=== PATIENT | female | born 1970 | race Caucasian/White ===

== ENCOUNTER 2016-12-08 15:28 | Emergency (ER) | payer OTHER ==
[~2016-12-08] VITALS: Ht 167.6 cm; Wt 96.8 kg
[~2016-12-08 15:28] MED LIST: ASCO10003 PO; ASPCH81X PO; ERGO1CAP35 PO; GLC/500 PO; HCTZ PO; MULTTAB58 PO; OMEP40CA PO
[2016-12-08 15:37] VITALS: BP 161/94; TEMP 36.6; Ht 167.6 cm; Wt 96.8 kg
[2016-12-08] MEDS ORDERED: HYDR25TA5 PO (15:59)
[2016-12-08] MEDS ORDERED: METF500T5 PO (15:59)
[2016-12-08] MEDS ORDERED: CHOL1000 PO (15:59)
[2016-12-08] MEDS ORDERED: OMEP40CA41 PO (15:59)
[2016-12-08] MEDS ORDERED: ASPI81TA28 PO (15:59)
--- NOTE | 2016-12-08 16:29 | EMERGENCY ROOM VISIT NOTE ---
History First contact with patient: 15:48 Chief Complaint: PUNCTURE WOUND Stated Complaint: PUNCTURED FINGER FROM FORCEPS WC (EMPLOYEE) Nursing Triage Summary: Triage note: pt reports "i was stabbed by forceps at work to my right index finger." pt reports happend at approx 0930. 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 The patient reports that she accidentally stuck her finger with a mosquito forceps at 9:30 AM. She reports that the wound did bleed extensively. She also cleanse the wound. She was cleaning up a vasectomy tray from yesterday. She and her water control supervisor are pretty certain that the tray was Dr. Black's tray. They do not know the name of one of four total vasectomy patients from yesterday. The patient's tetanus immunization is up-to-date. She is also up-to-date on all of her hospital required immunizations. And is [id number], and denies any significant pain. Review of Systems 10 system review was performed and was negative except for pertinent positives and negatives as indicated in history of present illness Past Medical/Surgical History Medical Problems: (1) GERD (gastroesophageal reflux disease) (2) Hyperlipidemia Nec/Nos (3) Hyperparathyroidism, Unspecified (4) Vitamin D Deficiency Nos Family History Unremarkable Social History Smoking Status: Never Smoker Alcohol Use: occasionally Marital Status: Housing Status: lives with family Occupation Status: employed Current/Historical Medications Scheduled Aspirin (Aspirin Ec), 81 MG PO DAILY Cholecalciferol (Vitamin D3), 1,000 INTER.UNIT PO DAILY Hydrochlorothiazide (Hydrochlorothiazide), 25 MG PO QAM Metformin Hcl Er (Glucophage Er), 500 MG PO DAILY Omeprazole (Prilosec), 40 MG PO QAM Allergies Coded Allergies: Adhesives (Verified Allergy, Unknown, hives, skin irritation, 03/24/16) adhesive tape causes hives, skin irritation Chlorhexidine (Verified Adverse Reaction, Intermediate, RASH, 03/24/16) ITCHING, REDNESS Physical Exam Vital Signs Date Time Temp Pulse Resp B/P Pulse Ox O2 Delivery O2 Flow Rate FiO2 12/08/16 15:37 36.6 78 18 161/94 99 Room Air Physical Exam CONSTITUTIONAL: Healthy and well nourished. Alert and oriented X 3 with positive affect. HEENT: Normocephalic, atraumatic. Pupils equal, round and reactive. NECK: Full active range of motion without discomfort. MUSCULOSKELETAL: Examination shows a puncture wound in the center of the right index finger digital pad. No active bleeding or ecchymosis. Capillary refill is less than 2 seconds. INTEGUMENTARY: No rash or other significant dermatologic conditions noted. NEUROLOGIC: No focal neurologic deficits noted. Medical Decision & Procedures ED Course Patient history and physical exam were performed. Nurse's notes were reviewed. Vital signs were reviewed and were normal. I did contact [facility] to advise them of this #injury in case the had not heard from the floor this morning. Baseline labs were drawn. I did explain to the patient that this is a low risk injury because of the amount of time between surgery and injury. Add to the fact that the equipment was also processed through an chrome cleaner and cleaning solution. The patient did sign a consent for baseline HIV testing. Based on our conversation, she elected to defer HIV postexposure prophylaxis. She will follow-up with [facility] for further management. The patient was happy with plan of care, and voiced understanding of all discharge instructions. Medical Decision Impression Primary Impression: Puncture wound of right index finger Additional Impression: Work related injury Departure Information Dispostion Home / Self-Care Forms HOME CARE DOCUMENTATION FORM, IMPORTANT VISIT INFORMATION Patient Instructions My [facility] Additional Instructions Keep wound clean and watch for any signs of developing infection. Follow-up with [facility] for further reevaluation and management. Problem Qualifiers
[2016-12-08 16:39] VITALS: PULSE 74; O2SAT 99
[2017-04-27] MEDS ORDERED: TRIATAB3 PO (14:49)
[2017-04-27] MEDS ORDERED: CHOL1TAB76 PO (14:49)
[2017-04-27] MEDS ORDERED: AZITTAB PO (14:50)
[2017-04-27] MEDS ORDERED: ASCO10003 PO (14:50)
[2017-04-27] MEDS ORDERED: MULT-506 PO (14:50)
== END 2016-12-08 16:40 | disposition home or self-care (01) ==
LOC: C.EDB 15:31 → C.EDD 16:40
DX: S61.230A Puncture wound without foreign body of right index finger without damage to nail, initial encounter (principal); W22.8XXA Striking against or struck by other objects, initial encounter; Y92.89 Other specified places as the place of occurrence of the external cause; Y99.0 Civilian activity done for income or pay; E78.5 Hyperlipidemia, unspecified; E21.3 Hyperparathyroidism, unspecified; K21.9 Gastro-esophageal reflux disease without esophagitis; Z79.82 Long term (current) use of aspirin; Z79.84 Long term (current) use of oral hypoglycemic drugs; Z79.899 Other long term (current) drug therapy; Z88.8 Allergy status to other drugs, medicaments and biological substances; Z91.09 Other allergy status, other than to drugs and biological substances

== ENCOUNTER → 2017-01-01 | Outpatient (CLI) | payer OTHER ==
[~2017-01-01] MED LIST changes: -ASPCH81X PO; +ASPI81TA28 PO; +AZITTAB PO; +CHOL1000 PO; +CHOL1TAB76 PO; -ERGO1CAP35 PO; +GADAVIST IV PRN; -GLC/500 PO; -HCTZ PO; +HYDR25TA5 PO; +METF500T5 PO; +MULT-506 PO; -MULTTAB58 PO; -OMEP40CA PO; +OMEP40CA41 PO; +TRIATAB3 PO
--- NOTE | 2017-01-01 07:29 | DIAGNOSTIC IMAGING REPORT ---
MRI ABDOMEN COMBO CLINICAL HISTORY: PANCREATIC NEOPLASM TECHNIQUE: Imaging was performed prior to and following IV contrast injection. (20 cc intravenous Magnevist) COMPARISON STUDY: 01/19/2016 FINDINGS: Imaging was acquired in the coronal and axial planes. No hepatic masses are visualized. No gallbladder abnormalities are visualized. No renal masses are visualized. No splenic masses are visualized. No adrenal masses are visualized. There is no evidence of abdominal aortic aneurysm. No adrenal masses are visualized. There is no evidence of ductal dilatation. There is a stable 7 mm intrapancreatic lipoma. There is a stable 3 mm pancreatic tail cystic lesion. IMPRESSION: No significant change from the preceding examination. Stable 7 mm intrapancreatic lipoma, and stable 3 mm pancreatic tail cystic lesion. Electronically signed by: Rony Santana M.D. 01/01/2017 7:28 AM Dictated Date/Time: 01/01/2017 7:22 AM
== END | disposition home or self-care (01) ==
LOC: C.MRI 06:04
PROVIDERS: ATTEND Internal Medicine Endocrinology, Diabetes & Metabolism
DX: E31.21 Multiple endocrine neoplasia [MEN] type I (principal); D35.2 Benign neoplasm of pituitary gland; D35.3 Benign neoplasm of craniopharyngeal duct; D49.0 Neoplasm of unspecified behavior of digestive system; R79.9 Abnormal finding of blood chemistry, unspecified

== ENCOUNTER → 2017-01-05 | Outpatient (CLI) | payer OTHER ==
--- NOTE | 2017-01-05 16:24 | DIAGNOSTIC IMAGING REPORT ---
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 COMPARISON STUDY: 01/17/2016 FINDINGS: Sagittal T1, and dynamic coronal T1-weighted images were acquired during intravenous administration of 9.5 cc of intravenous Gadavist. Post gadolinium thin section sagittal T1-weighted images were acquired. An axial FIESTA sequence was acquired. The optic chiasm appears normal. The infundibulum is within the midline. The pituitary gland is somewhat asymmetric in appearance. On dynamic imaging, there is a 4 mm focus of decreased enhancement within the right side of the gland. In addition the superior aspect of the right aspect of the pituitary appears somewhat bulbous in enhances in a heterogeneous fashion. This portion of the gland measures 6 mm. IMPRESSION: 1. 4 mm focus of decreased enhancement within the right side of the pituitary gland, consistent with a microadenoma 2. Stable somewhat bulbous right side of the pituitary gland which enhances somewhat inhomogeneously. This measures 6 mm. This remains similar in appearance to the prior study and may represent a second microadenoma. Electronically signed by: Rony Santana M.D. 01/05/2017 4:23 PM Dictated Date/Time: 01/05/2017 4:18 PM
== END | disposition home or self-care (01) ==
LOC: C.MRI 15:07
PROVIDERS: ATTEND Internal Medicine Endocrinology, Diabetes & Metabolism
DX: E31.21 Multiple endocrine neoplasia [MEN] type I (principal); D35.2 Benign neoplasm of pituitary gland; D35.3 Benign neoplasm of craniopharyngeal duct

== ENCOUNTER → 2017-01-16 | Outpatient (CLI) | payer OTHER ==
[~2017-01-16] MED LIST changes: -GADAVIST IV PRN
[2017-01-16 11:14] LABS: HEPATITIS B AB POS
== END | disposition home or self-care (01) ==
LOC: C.LAB1850 09:27
PROVIDERS: ATTEND Nurse Practitioner Family
DX: Z77.21 Contact with and (suspected) exposure to potentially hazardous body fluids (principal)

== ENCOUNTER → 2017-01-22 | Outpatient (CLI) | payer OTHER ==
[2017-01-22 08:46] LABS: BLOOD UREA NITROGEN 16 mg/dl (7-18); BUN/CREATININE RATIO 21.3 (10-20); CARBON DIOXIDE 30 mmol/L (21-32); CHLORIDE 103 mmol/L (98-107); CREATININE 0.76 mg/dl (0.60-1.20); GLUCOSE 132 mg/dl (70-99); POTASSIUM 3.3 mmol/L (3.5-5.1); SODIUM 140 mmol/L (136-145)
[2017-01-22 09:17] LABS: CALCIUM 9.8 mg/dl (8.5-10.1)
[2017-01-22 09:32] LABS: ESTIMATED AVERAGE GLUCOSE 134 mg/dl; HA1C FLAG Normal (Normal)
[2017-01-22 12:14] LABS: RATIO 3.8 mcg/mg (0-30.0)
[2017-01-25 10:27] LABS: 5-HIAA 4.8 mg/24 h (<=6.0)
[2017-01-28 02:24] LABS: CHROMOGRANIN A 51 ng/mL (< OR = 15); GASTRIN** TC 478X 96 pg/mL (<=100); NORMETANEPHRINE PLASMA 31 pg/mL (<=148); PANCREATIC POLYPEPTIDE 458 pg/mL (82-1016); SEROTONIN** TC 29851 107 ng/mL (56-244); TOTAL METANEPHRINE PLASMA 31 pg/mL (<=205)
== END | disposition home or self-care (01) ==
LOC: C.LAB 07:42
PROVIDERS: ATTEND Internal Medicine Endocrinology, Diabetes & Metabolism
DX: E31.21 Multiple endocrine neoplasia [MEN] type I (principal); E89.0 Postprocedural hypothyroidism; E21.0 Primary hyperparathyroidism; E55.9 Vitamin D deficiency, unspecified; E87.6 Hypokalemia; R73.01 Impaired fasting glucose; D49.0 Neoplasm of unspecified behavior of digestive system; D35.2 Benign neoplasm of pituitary gland

== ENCOUNTER → 2017-02-06 | Outpatient (CLI) | payer OTHER ==
--- NOTE | 2017-02-06 07:40 | DIAGNOSTIC IMAGING REPORT ---
RIGHT THIGH ULTRASONOGRAPHY CLINICAL HISTORY: Right thigh mass COMPARISON STUDY: No previous studies for comparison. FINDINGS: Within the posterior right thigh, at the site of palpable abnormality, there is a circumscribed 28 x 8 x 21 mm mass which is isoechoic to adjacent fat. The appearance favors a lipoma. Clinical follow-up is advocated. Fine-needle aspiration biopsy could be obtained in follow-up if definitive tissue diagnosis is desired. IMPRESSION: The palmar mass corresponds to a 28 x 8 x 21 mm circumscribed mass which is isoechoic to adjacent fat. The appearance favors a lipoma. Clinical follow-up is advocated. Electronically signed by: Rony Santana M.D. 02/06/2017 7:39 AM Dictated Date/Time: 02/06/2017 7:37 AM
== END | disposition home or self-care (01) ==
LOC: C.ULTR 07:10
PROVIDERS: ATTEND Family Medicine
DX: R22.41 Localized swelling, mass and lump, right lower limb (principal)

== ENCOUNTER → 2017-03-23 | Outpatient (CLI) | payer OTHER ==
--- NOTE | 2017-03-23 15:31 | MAMMOGRAPHY REPORT ---
BILATERAL DIGITAL SCREENING MAMMOGRAM TOMOSYNTHESIS WITH CAD: 03/23/2017 CLINICAL HISTORY: Routine screening. TECHNIQUE: Breast tomosynthesis in addition to standard 2D mammography was performed. Current study was also evaluated with a Computer Aided Detection (CAD) system. COMPARISON: Comparison is made to exams dated: 03/02/2016 mammogram, 01/06/2015 mammogram, 01/05/2014 vickie mogram, 12/17/2012 mammogram, 12/15/2011 mammogram, and 10/24/2010 mammogram - [facility]. BREAST COMPOSITION: There are scattered areas of fibroglandular density in both breasts. FINDINGS: A linear scar marker overlies the left anterior breast. There are a few benign-appearing c alcifications in the left breast. A nodular asymmetry in the upper outer anterior left breast appear s stable on all available prior mammograms dating back to at least 03/09/2008, therefore likely benig n. No new suspicious mass, architectural distortion or cluster of microcalcifications is seen. IMPRESSION: ACR BI-RADS CATEGORY 1: NEGATIVE There is no mammographic evidence of malignancy. A 1 year screening mammogram is recommended. The pa tient will receive written notification of the results. Approximately 10% of breast cancers are not detected with mammography. A negative mammographic report should not delay biopsy if a clinically suggestive mass is present. Hanny Tyler M.D. ay/:03/23/2017 15:15:07 Tube Winder Hand: Talisha PARK(R)(M), [facility] letter sent: Normal 1/2 BI-RADS Code: ACR BI-RADS Category 1: Negative
== END | disposition home or self-care (01) ==
LOC: C.MAMM 14:35
PROVIDERS: ATTEND Obstetrics & Gynecology
DX: Z12.31 Encounter for screening mammogram for malignant neoplasm of breast (principal)

== ENCOUNTER → 2017-04-18 | Outpatient (CLI) | payer OTHER | END | disposition home or self-care (01) | LOC: C.PAPS 17:00 | PROVIDERS: ATTEND Obstetrics & Gynecology | DX: Z12.4 Encounter for screening for malignant neoplasm of cervix (principal) ==

== ENCOUNTER → 2017-04-19 | Outpatient (CLI) | payer OTHER ==
[2017-04-19 18:00] LABS: BASO % 0.2 %; BASO ABS # 0.02 K/uL (0-0.2); COMPLETE YES; EOS % 1.4 %; HEMATOCRIT 39.2 % (37-47); IG% 0.3 %; LYMPH % 25.5 %; MEAN CELL VOLUME 90.5 fL (80-100); MEAN CORPUSCULAR HEMOGLOBIN 30.7 pg (25-34); MEAN CORPUSCULAR HGB CONC 33.9 g/dl (32-36); MEAN PLATELET VOLUME 9.7 fL (7.4-10.4); MONO % 4.7 %; NEUT % 67.9 %; PLATELET COUNT 309 K/uL (130-400); RED BLOOD COUNT 4.33 M/uL (4.2-5.4); WHITE BLOOD COUNT 9.41 K/uL (4.8-10.8)
--- NOTE | 2017-04-19 18:26 | DIAGNOSTIC IMAGING REPORT ---
TWO VIEW CHEST CLINICAL HISTORY: Preoperative examination. Cough. FINDINGS: PA and lateral chest radiographs are compared to study dated 05/13/2014. The cardiomediastinal silhouette is unremarkable. The lungs and pleural spaces are clear. There is no pneumothorax. The bony thorax appears intact. Fusion hardware is noted in the lower cervical spine. Degenerative change is seen in the thoracic spine. IMPRESSION: No active disease in the chest. Electronically signed by: Efren Sen M.D. 04/19/2017 6:25 PM Dictated Date/Time: 04/19/2017 6:24 PM
[2017-04-19 18:35] LABS: BLOOD UREA NITROGEN 10 mg/dl (7-18); BUN/CREATININE RATIO 13.8 (10-20); CARBON DIOXIDE 32 mmol/L (21-32); CHLORIDE 100 mmol/L (98-107); CREATININE 0.73 mg/dl (0.60-1.20); GLUCOSE 88 mg/dl (70-99); POTASSIUM 3.6 mmol/L (3.5-5.1); SODIUM 137 mmol/L (136-145)
== END | disposition home or self-care (01) ==
LOC: C.RAD 17:41
PROVIDERS: ATTEND Surgery
DX: M79.9 Soft tissue disorder, unspecified (principal); R05 Cough

== ENCOUNTER → 2017-06-15 | Outpatient (CLI) | payer OTHER ==
[~2017-06-15] MED LIST changes: -CHOL1000 PO; -HYDR25TA5 PO
== END ==
LOC: C.MNPGOH 14:57
PROVIDERS: ATTEND Nurse Practitioner Family
DX: Z77.21 Contact with and (suspected) exposure to potentially hazardous body fluids (principal); W46.1XXA Contact with contaminated hypodermic needle, initial encounter

== ENCOUNTER → 2017-07-20 | Day surgery (SDC) | payer OTHER ==
[2017-07-12 07:42] VITALS: Ht 167.6 cm; Wt 95.5 kg
[2017-07-19 09:35] LABS: BASO % 0.3 %; BASO ABS # 0.02 K/uL (0-0.2); COMPLETE YES; EOS % 0.7 %; HEMATOCRIT 36.7 % (37-47); IG% 0.3 %; LYMPH % 25.6 %; LYMPH ABS # 1.83 K/uL (1.2-3.4); MEAN CELL VOLUME 92.9 fL (80-100); MEAN CORPUSCULAR HEMOGLOBIN 30.1 pg (25-34); MEAN CORPUSCULAR HGB CONC 32.4 g/dl (32-36); MEAN PLATELET VOLUME 10.1 fL (7.4-10.4); MONO % 4.8 %; NEUT % 68.3 %; PLATELET COUNT 345 K/uL (130-400); RED BLOOD COUNT 3.95 M/uL (4.2-5.4); WHITE BLOOD COUNT 7.14 K/uL (4.8-10.8)
[2017-07-19 09:54] LABS: BUN/CREATININE RATIO 20.5 (10-20); CALCIUM 9.4 mg/dl (8.5-10.1); CREATININE 0.74 mg/dl (0.60-1.20); POTASSIUM 3.7 mmol/L (3.5-5.1)
[~2017-07-20] VITALS: Ht 167.6 cm; Wt 95.5 kg
[~2017-07-20] MED LIST changes: -ASPI81TA28 PO; +ATROPINE SULFATE 0.1 MG/ML 5ML SYR IV PRN; -AZITTAB PO; +BUPIVACAINE/EPINEPHRINE 0.5% MPF 1:200,000 30 ML VIAL ONE; +CEFAZOLIN 2000MG IV PUSH 10 ML IV SCH; +EpHEDrine SULFATE 50MG/5ML SYR ONE; +EpHEDrine SULFATE INJ 50 MG/ML AMP IV PRN; +FENTANYL CITRATE INJ 50 MCG/1 ML 2 ML VIAL IV PRN; +FENTANYL CITRATE INJ 50 MCG/1 ML 2 ML VIAL ONE; +HYDROCODONE/ACETAMOPHEN 5/325MG TAB PO PRN; +HYDROmorphone INJ 1 MG/ML SYR IV PRN; +IBUPROFEN 600 MG TAB PO PRN; +LACTATED RINGER'S 1000ML 1,000 ML IV SCH; +MIDAZOLAM HCL 1 MG/ML 2ML VIAL ONE; +ONDANSETRON INJ 2 MG/ML 2 ML VIAL IV PRN; +PROMETHAZINE HCL INJ 12.5 MG in SODIUM CHLORIDE 0.9% 50ML 50 ML IV PRN; +PROPOFOL IV EMULSION 10 MG/ML 20 ML VIAL IV ONE; +SODIUM CHLORIDE 0.9% 1000ML 1,000 ML IV SCH
--- NOTE | 2017-07-20 12:00 | History & Physical Bridge Note ---
H&P Re-Evaluation Bridge Note: I have examined the patient, reviewed the History & Physical and in the interval since the performance of the History & Physical I have noted the following changes of clinical significance: No changes noted
--- NOTE | 2017-07-20 13:12 | Discharge Instructions ---
Discharge Instructions Date of Service Jul 20, 2017. Visit Reason for Visit: Soft Tissue Mass Posterior Right Thigh And Left Fo Discharge Discharge Diagnosis / Problem: Soft Tissue Mass Posterior Right Thigh and Left Forearm Discharge Goals Goal(s): Decrease discomfort, Improve function Medications Stopped Medications Name(s): Metformin Activity Recommendations Activity Limitations: resume your previous activity Lifting Limitations: no more than 25 pounds, until after follow-up appointment Exercise/Sports Limitations: rest today, gradually increase as tolerated Shower/Bathe: tomorrow Driving or Machine Use: resume 1 day after discharge Anesthesia . Post Anesthesia Instructions: If you have had General Anesthesia or IV Sedation: * Do not drive today. * Resume driving when surgeon permits. * Do not make important decisions or sign legal documents today. * Call surgeon for: 1. Temperature elevations greater than 101 degrees F. 2. Uncontrollable pain. 3. Excessive bleeding. 4. Persistent nausea and vomiting. 5. Medication intolerance (nausea, vomiting or rash). * For nausea and vomiting use only clear liquids such as: tea, soda, bouillon until nausea subsides, then gradually increase diet as tolerated. * If you have any concerns or questions, call your surgeon's office. If physician is unavailable and it is an emergency, call 911 or go to the nearest emergency room. . Instructions / Follow-Up Instructions / Follow-Up You have dissolvable sutures in place and a gauze bandage. You may remove the bandage tomorrow. Please follow-up with Dr. Agee in 2 weeks. Please Call our office at to schedule an appointment if you have not done so already. Please contact our office with any further questions or concerns at the number above. [facility]. [address] [place] [address]. Diet Recommendations Recommended Home Diet: no limitations, resume previous diet Procedures Procedures Performed: Right Posterior Thigh Lipoma & Left Forearm Lipoma Excision Pending Studies Studies pending at discharge: yes List of pending studies: Pathology Medical Emergencies . Who to Call and When: Medical Emergencies: If at any time you feel your situation is an emergency, please call 911 immediately. . Non-Emergent Contact Non-Emergency issues call your: Primary Care Provider, Surgeon Call Non-Emergent contact if: you have a fever, temperature is above 101.5, your pain is not controlled, your pain is worsening, wound has increased drainage, wound has increased redness . . "Provider Documentation" section prepared by Rajendra Ferrari. . [place] Drug Monitoring Program Drug Monitoring Findings: N/A - No scheduled medications prescribed at this time.
--- NOTE | 2017-07-20 13:34 | [facility] Operative Report ---
Operative Report Operative Date Jul 20, 2017. Pre-Operative Diagnosis Right Posterior Thigh Lipoma, Left Forearm Lipoma Post-Operative Diagnosis Same Procedure(s) Performed Right Posterior Thigh Lipoma -3 cm& Left Forearm Lipoma Excision-[address] Agee Welfare Worker Surgeon(s) None Estimated Blood Loss 5 ml Findings benign appearing lipomas times 2. Specimens A.) Right Posterior Thigh Lipoma B.) Left Forearm Lipoma Anesthesia MAC/local Complication(s) None Disposition Recovery Room / PACU Description of Procedure After informed consent was obtained the patient was taken to the operating room and placed in a supine position. She was then placed in a left lateral decubitus position with gel rolls. IV sedation was administered by anesthesia and titrated to effect. The left forearm and right posterior thigh areas were sterilely prepped and draped in usual fashion. I began with the forearm lipoma. I injected some Marcaine with epinephrine around it to create a field block. I used a 15 blade scalpel to make a linear incision directly over the palpable mass. Electrocautery was used to carry this down through the soft tissue revealing a discrete lipoma. I was able used traction countertraction small amount of cautery to remove the lipoma in 1 piece. We sent to pathology. Any bleeding points were controlled using electrocautery. The wound was thoroughly irrigated and closed in 2 layers using 3-0 Vicryl for deep layers and 4-0 Monocryl for the skin. Benzoin Steri-Strips and a sterile dressing were applied. I Used the same technique for the posterior thigh lipoma. I create a field block with Marcaine and epinephrine and then made a vertical incision directly over the mass. Again it was a discrete mass that I was able to remove in one piece and sent it to pathology. Bleeding was controlled with electrocautery and the wound was thoroughly irrigated. It was closed in 2 layers using 3-0 Vicryl and 4-0 Monocryl for the skin. Benzoin Steri-Strips and a sterile dressing were applied as well. The patient was awaken and transferred recovery in stable condition I attest to the content of the Intraoperative Record and any orders documented therein. Any exceptions are noted below.
--- NOTE | 2017-07-20 13:44 | Anesthesia Progress Nt - [facility] ---
Anesthesia Post Op Note Date & Time Jul 20, 2017 at 13:44 Vital Signs Pain Intensity: 0 Vital Signs Past 12 Hours Date Time Temp Pulse Resp B/P (MAP) Pulse Ox O2 Delivery O2 Flow Rate FiO2 07/20/17 13:13 36.3 79 16 117/73 (88) 98 Room Air 07/20/17 10:13 36.6 67 16 138/84 (102) 97 Room Air Notes Mental Status: alert / awake / arousable, participated in evaluation Pt Amnestic to Procedure: Yes Nausea / Vomiting: adequately controlled Pain: adequately controlled Airway Patency, RR, SpO2: stable & adequate BP & HR: stable & adequate Hydration State: stable & adequate Anesthetic Complications: no major complications apparent
[2017-07-20 13:49] VITALS: BP 125/76; PULSE 72; TEMP 36.4; O2SAT 98
== END | disposition home or self-care (01) ==
LOC: X.SURG 09:12
PROVIDERS: ATTEND Surgery
DX: D17.23 Benign lipomatous neoplasm of skin and subcutaneous tissue of right leg (principal); D17.22 Benign lipomatous neoplasm of skin and subcutaneous tissue of left arm; E11.9 Type 2 diabetes mellitus without complications; Z98.818 Other dental procedure status; Z90.89 Acquired absence of other organs; Z79.82 Long term (current) use of aspirin; Z98.890 Other specified postprocedural states; Z79.899 Other long term (current) drug therapy; Z86.718 Personal history of other venous thrombosis and embolism; Z82.49 Family history of ischemic heart disease and other diseases of the circulatory system; Z83.3 Family history of diabetes mellitus; Z83.49 Family history of other endocrine, nutritional and metabolic diseases; E66.9 Obesity, unspecified; Z68.34 Body mass index [BMI] 34.0-34.9, adult

== ENCOUNTER → 2017-08-06 | Outpatient (CLI) | payer OTHER ==
[~2017-08-06] MED LIST changes: +ASPI81TA28 PO; -ATROPINE SULFATE 0.1 MG/ML 5ML SYR IV PRN; +AZITTAB PO; -BUPIVACAINE/EPINEPHRINE 0.5% MPF 1:200,000 30 ML VIAL ONE; -CEFAZOLIN 2000MG IV PUSH 10 ML IV SCH; -EpHEDrine SULFATE 50MG/5ML SYR ONE; -EpHEDrine SULFATE INJ 50 MG/ML AMP IV PRN; -FENTANYL CITRATE INJ 50 MCG/1 ML 2 ML VIAL IV PRN; -FENTANYL CITRATE INJ 50 MCG/1 ML 2 ML VIAL ONE; -HYDROCODONE/ACETAMOPHEN 5/325MG TAB PO PRN; -HYDROmorphone INJ 1 MG/ML SYR IV PRN; -IBUPROFEN 600 MG TAB PO PRN; -LACTATED RINGER'S 1000ML 1,000 ML IV SCH; -MIDAZOLAM HCL 1 MG/ML 2ML VIAL ONE; -ONDANSETRON INJ 2 MG/ML 2 ML VIAL IV PRN; -PROMETHAZINE HCL INJ 12.5 MG in SODIUM CHLORIDE 0.9% 50ML 50 ML IV PRN; -PROPOFOL IV EMULSION 10 MG/ML 20 ML VIAL IV ONE; -SODIUM CHLORIDE 0.9% 1000ML 1,000 ML IV SCH
[2017-08-06 10:09] LABS: BLOOD UREA NITROGEN 14 mg/dl (7-18); CALCIUM 10.1 mg/dl (8.5-10.1); CARBON DIOXIDE 32 mmol/L (21-32); CHLORIDE 102 mmol/L (98-107); CHOLESTEROL 161 mg/dl (0-200); CREATININE 0.79 mg/dl (0.60-1.20); GLUCOSE 115 mg/dl (70-99); POTASSIUM 3.4 mmol/L (3.5-5.1); SODIUM 139 mmol/L (136-145); TRIGLYCERIDES 126 mg/dl (0-150); VERY LOW DENSITY LIPOPROT CALC 25 mg/dl
[2017-08-06 10:18] LABS: CHOLESTEROL/HDL RATIO 3.1; HDL CHOLESTEROL 52 mg/dl; LDL CHOLESTEROL CALCULATED 84 mg/dl
[2017-08-06 10:21] LABS: ESTIMATED AVERAGE GLUCOSE 137 mg/dl; HA1C FLAG Normal (Normal)
[2017-08-07 14:15] LABS: MICROSOMAL AB <1 IU/ML (<9)
== END | disposition home or self-care (01) ==
LOC: C.LAB 08:19
PROVIDERS: ATTEND Internal Medicine Endocrinology, Diabetes & Metabolism
DX: D49.0 Neoplasm of unspecified behavior of digestive system (principal)

== ENCOUNTER → 2017-09-06 | Outpatient (CLI) | payer OTHER ==
[~2017-09-06] MED LIST changes: +ACET-1256 PO; -ASPI81TA28 PO; -AZITTAB PO; +GADAVIST IV PRN; +GLIP2.5T11 PO; +HYDR-3419 PO; +MTR600X PO; +OXYC-57 PO
--- NOTE | 2017-09-06 10:21 | DIAGNOSTIC IMAGING REPORT ---
MRI OF THE ABDOMEN COMBO CLINICAL HISTORY: Pancreatic neoplasm. COMPARISON STUDY: Abdominal MRI dated 01/01/2017 and 08/18/2013. TECHNIQUE: MRI of the abdomen is performed transverse T1 and T2-weighted sequences in the axial and coronal planes. Contrast enhanced sequences were acquired following the IV administration of 9 cc of Gadavist. Subtraction imaging was utilized. The examination is degraded by motion artifact. MRCP images are created and assessed. FINDINGS: Lower chest: No pleural effusion is identified. The heart is normal in size. Liver: The liver is normal in enlarged, measuring 18.6 cm in length. The liver demonstrates diffuse drop in signal intensity on the opposed phase imaging consistent with hepatic steatosis. Fatty sparing is seen adjacent to gallbladder fossa. No intrahepatic biliary ductal dilatation is seen. The hepatic veins and portal veins are patent. Gallbladder: The gallbladder is normal in appearance. No gallstones are identified. The common bile duct is normal in caliber and measures up to 5 mm. There are no filling defects to indicate choledocholithiasis. The pancreatic duct is normal in caliber. Spleen: Normal in size and signal intensity. Pancreas: An 8 mm lipoma in the pancreatic body is unchanged from multiple prior studies. A 3 mm cystic focus in the pancreatic tail is seen on coronal MRCP image #94. This remains typical appearance for a tiny sidebranch IV admin. The pancreas is otherwise normal as imaged. No enhancing mass lesion is seen. Adrenal glands: Unremarkable. Kidneys: The kidneys are normal in size and without hydronephrosis. The kidneys enhance and excrete symmetrically. Abdominal aorta: Normal in course and caliber. Bowel: Visualized portions of the small bowel and colon show no evidence of obstruction. Moderate colonic fecal retention is observed. Peritoneum: There is no abdominal ascites. Lymphadenopathy: None. Skeletal structures: Visualized skeletal structures times are normal marrow signal intensity. IMPRESSION: 1. An 8 mm lipoma in the pancreatic body and a 3 mm IPMN in the pancreatic tail are unchanged over multiple prior studies and of doubtful significance. 2. Hepatomegaly and hepatic steatosis. 3. Moderate colonic fecal retention. Electronically signed by: Efren Sen M.D. 09/06/2017 10:19 AM Dictated Date/Time: 09/06/2017 10:11 AM
== END | disposition home or self-care (01) ==
LOC: C.MRI 08:51
PROVIDERS: ATTEND Internal Medicine Endocrinology, Diabetes & Metabolism
DX: E31.21 Multiple endocrine neoplasia [MEN] type I (principal); D49.0 Neoplasm of unspecified behavior of digestive system; D17.79 Benign lipomatous neoplasm of other sites; R16.0 Hepatomegaly, not elsewhere classified; K76.0 Fatty (change of) liver, not elsewhere classified; K59.00 Constipation, unspecified

== ENCOUNTER 2017-10-19 07:25 | Day surgery (SDC) | payer BC, OTHER ==
[2017-10-01 15:47] VITALS: Ht 165.1 cm; Wt 95.5 kg
[~2017-10-19] VITALS: Ht 165.1 cm; Wt 95.5 kg
[~2017-10-19 07:25] MED LIST changes: -ACET-1256 PO; +ATROPINE SULFATE 0.1 MG/ML 5ML SYR IV PRN; +EpHEDrine SULFATE INJ 50 MG/ML AMP IV PRN; +FENTANYL CITRATE INJ 50 MCG/1 ML 2 ML VIAL IV PRN; -GADAVIST IV PRN; -GLIP2.5T11 PO; -HYDR-3419 PO; -MTR600X PO; +ONDANSETRON INJ 2 MG/ML 2 ML VIAL IV PRN; -OXYC-57 PO
[2017-10-19 07:46] VITALS: BP 136/92; PULSE 62; TEMP 36.6; O2SAT 97
[2017-10-19] MEDS ORDERED: FENTANYL CITRATE INJ 50 MCG/1 ML 2 ML VIAL ONE (07:47)
[2017-10-19] MEDS ORDERED: MIDAZOLAM HCL 1 MG/ML 2ML VIAL ONE (07:47)
[2017-10-19] MEDS ORDERED: SODIUM CHLORIDE 0.9% 500ML 500 ML IV ONE (08:22)
--- NOTE | 2017-10-19 08:22 | Endo History and Physical ---
History & Physical Date of Service: Oct 19, 2017. Chief Complaint: Referring Physician: History of Present Illness 47 yo presenting for evaluation and screening of MEN-1, elevated chromogranin A test Past Medical History Endocrine Disorder, Reflux, Thrombophlebitis Past Surgical History Hx Cardiac Surgery: No Hx Abdominal Surgery: No Hx Post-Op Nausea and Vomiting: Yes (PONV ON OCC) Hx Cancer Surgery: No Hx Thoracic Surgery: No Hx Orthopedic: No Hx Urinary Tract Surgery: No Social History Smoking Status: Never Smoker Hx Substance Use: No Hx Alcohol Use: Yes (OCC SOCIAL) Allergies Coded Allergies: Adhesives (Verified Allergy, Unknown, hives, skin irritation, 10/19/17) adhesive tape causes hives, skin irritation Chlorhexidine (Verified Adverse Reaction, Intermediate, RASH, 10/19/17) ITCHING, REDNESS Current Medications Reported Home Medications Medications Dose Route/Sig Max Daily Dose Days Date Category Vitamin C (Ascorbic Acid) 1,000 Mg Tab 1 Tab PO QPM 04/27/17 Reported Multivitamin (Multivitamins) Tab 1 Tab PO QPM 04/27/17 Reported Triamterene/Hctz 37.5-25MG (Triamterene/HCTZ) 1 Tab Tab 1 Tab PO QPM 04/27/17 Reported D 2000 (Cholecalciferol) 2,000 Unit Tab 1 Tab PO QPM 04/27/17 Reported Glucophage Er (Metformin HCl) 500 Mg Tab 1,000 Mg PO QPM 12/08/16 Reported Prilosec (Omeprazole) 40 Mg Cap 40 Mg PO QAM 12/08/16 Reported Vital Signs Weight (Kilograms): 95.45 Height (Feet): 5 Height (Inches): 5 Date Time Temp Pulse Resp B/P (MAP) Pulse Ox O2 Delivery O2 Flow Rate FiO2 10/19/17 07:46 36.6 62 16 136/92 (107) 97 Room Air Physical Exam General Appearance: WD/WN, no apparent distress Respiratory/Chest: Respiratory effort: no dyspnea Auscultation: breath sounds normal, CTA except as noted Cardiovascular: Apical Impulse: not displaced Heart Auscultation: RRR, normal S1, normal S2 Abdomen: Bowel Sounds: normal Inspection & Palpation: soft, non-distended Assessment and Plan Proceed with EUS for evaluation of pancreas as well as gastrinoma triangle
--- NOTE | 2017-10-19 09:59 | [facility] Post Operative Brief Note ---
Immediate Operative Summary Operative Date Oct 19, 2017. Pre-Operative Diagnosis MEN-1 Syndrome Post-Operative Diagnosis Multiple Cystic Pancreatic Lesions, Hypo Echoic Area Head FNA of Pancreatic Cyst in the Tail Procedure(s) Performed Upper Endoscopic Ultrasonography Surgeon Dr. Mejia Zeng Superintendent Operations Division Surgeon(s) None Estimated Blood Loss 0ml Findings Consistent with Post-Op Diagnosis several small cystic lesions, small hypoechoic lesion in the head, FNA x 2 Specimens all specimens handled by ENDO crew Anesthesia Type General
--- NOTE | 2017-10-19 10:19 | Discharge Instructions ---
Endoscopy Patient Instructions Date / Procedure(s) Performed Oct 19, 2017. Other (Endoscopic ultrasound) Allergy Information Coded Allergies: Adhesives (Verified Allergy, Unknown, hives, skin irritation, 10/19/17) adhesive tape causes hives, skin irritation Chlorhexidine (Verified Adverse Reaction, Intermediate, RASH, 10/19/17) ITCHING, REDNESS Discharge Date / Findings Oct 19, 2017. Cystic lesion in the tail Hypoechoic lesion in the head FNA x 2 Pathology results to follow Provider Instructions Activity Restrictions - No exercising or heavy lifting for 24 hours. - Do not drink alcohol the day of the procedure. - Do not drive a car or operate machinery until the day after the procedure. - Do not make any important decisions or sign important papers in 24 hours after the procedure. Following Day: - Return to full activity which may include returning to work/school. Diet Start your diet with liquids and light foods (jello, soup, juice, toast). Then eat your usual diet if not nauseated. Treatment For Common After Affects For mild abdominal pain, bloating, or excessive gas: - Rest - Eat lightly - Lie on right side Follow-Up Information Follow-up with as scheduled Anesthesia Information What You Should Know You have had a procedure that required some medicine to reduce anxiety and discomfort. This treatment is called moderate sedation. After receiving the treatment, you may be sleepy, but you will be able to breathe on your own. The effects of the treatment may last for several hours. Follow these instructions along with Activity/Diet recommendations noted above: * Do NOT do anything where dizziness or clumsiness would be dangerous. * Rest quietly at home today, then you can be up and about tomorrow. * Have a responsible person stay with you the rest of today. * You may have had an I.V. today. If so, you may take the dressing off later today. Recommendations Call your doctor if: * Trouble breathing * Continuous vomiting for more than 24 hours * Temperature above 101 degrees * Severe abdominal pain or bloating * Pain not relieved by pain medicine ordered * There is increased drainage or redness from any incision * A large amount of rectal bleeding greater than 2-3 tablespoons. (If you had a polyp/s removed or have hemorrhoids, a small amount of blood - from the rectum is to be expected.) * You have any unanswered questions or concerns. IN THE EVENT OF A SERIOUS EMERGENCY, GO TO THE NEAREST EMERGENCY ROOM Your discharge instructions were prepared by provider Mejia Zeng. Patient Instructions Signature Page Vandana Smiley Patient (or Guardian) Signature/Date: I have read and understand the instructions given to me by my caregivers. Caregiver/RN/Doctor Signature/Date: The above-named patient and/or guardian has received patient instructions on this date. + Original Patient Signature Page (only) stays with chart. Please make copy for patient.
[2017-10-19] MEDS ORDERED: HYDROmorphone INJ 2 MG/ML SYR/VIAL ONE (10:52)
[2017-10-19] MEDS ORDERED: LARYING-O-JET KIT (LTA) ONE (10:53)
[2017-10-19] MEDS ORDERED: ESMOLOL HCL 10 MG/ML 10 ML VIAL ONE (10:53)
[2017-10-19] MEDS ORDERED: LIDOCAINE HCL 2% 2 ML VIAL (20MG/ML) ONE (10:53)
[2017-10-19] MEDS ORDERED: ONDANSETRON INJ 2 MG/ML 2 ML VIAL ONE (10:53)
[2017-10-19] MEDS ORDERED: DEXAMETHASONE SOD INJ 4 MG/ML VIAL ONE (10:53)
[2017-10-19] MEDS ORDERED: PROPOFOL IV EMULSION 10 MG/ML 20 ML VIAL IV ONE (10:53)
[2017-10-19] MEDS ORDERED: NEOSTIGMINE METHYLSULFATE 5 MG/5 ML SYR ONE (10:53)
[2017-10-19] MEDS ORDERED: ROCURONIUM BROMIDE 10 MG/ML 5 ML VIAL IV ONE (10:53)
[2017-10-19] MEDS ORDERED: GLYCOPYRROLATE INJ 0.2 MG/ML VIAL ONE (10:53)
[2017-10-19 11:00] VITALS: BP 109/64; PULSE 46; TEMP 36.7; O2SAT 98
--- NOTE | 2017-10-19 11:01 | Anesthesiology Progress Note ---
Anesthesia Post Op Note Date & Time Oct 19, 2017 at 11:01 Vital Signs Pain Intensity: 0 Vital Signs Past 12 Hours Date Time Temp Pulse Resp B/P (MAP) Pulse Ox O2 Delivery O2 Flow Rate FiO2 10/19/17 10:40 36.4 45 16 125/78 100 Room Air 10/19/17 10:30 45 12 123/79 100 Nasal Cannula 3 10/19/17 10:20 61 13 128/52 100 Nasal Cannula 3 10/19/17 10:11 36.1 73 17 120/83 97 Nasal Cannula 3 10/19/17 07:46 36.6 62 16 136/92 (107) 97 Room Air Notes Mental Status: alert / awake / arousable, participated in evaluation Pt Amnestic to Procedure: Yes Nausea / Vomiting: adequately controlled Pain: adequately controlled Airway Patency, RR, SpO2: stable & adequate BP & HR: stable & adequate Hydration State: stable & adequate Anesthetic Complications: no major complications apparent
--- NOTE | 2017-10-19 11:08 | GI REPORT ---
Procedure Date: 10/19/2017 8:40 AM Procedure: Upper GI endoscopy Indications: Functional Dyspepsia, Known MEN-1 Syndrome Medicines: General Anesthesia Complications: No immediate complications. Estimated blood loss: None. Estimated Blood Loss: Estimated blood loss: none. Procedure: Pre-Anesthesia Assessment: - Pre-Anesthesia Assessment: - Prior to the procedure, a History and Physical was performed, and patient medications, allergies and sensitivities were reviewed. The patient's tolerance of previous anesthesia was reviewed. Please see [employer] for complete details. - The risks and benefits of the procedure and the sedation options and risks were discussed with the patient. All questions were answered and informed consent was obtained. - Patient identification and proposed procedure were verified prior to the procedure by the physician and the nurse. The procedure was verified in the pre-procedure area in the procedure room. After obtaining informed consent, the endoscope was passed carefully and meticuously under direct vision and only advanced when the lumen was clearly identified, C02 insuflation was utilized throughout the entirity of the procedure. Throughout the procedure, the patient's blood pressure, pulse, and oxygen saturations were monitored continuously. After obtaining informed consent, the endoscope was passed under direct vision. Throughout the procedure, the patient's blood pressure, pulse, and oxygen saturations were monitored continuously. The Scope was introduced through the mouth, and advanced to the third part of duodenum. The upper GI endoscopy was accomplished without difficulty. The patient tolerated the procedure well. Findings: The examined esophagus was normal. The entire examined stomach was normal. A few localized erosions without bleeding were found in the duodenal bulb. Biopsies were taken with a cold forceps for histology. A large diverticulum was found in the area of the papilla. Impression: - Normal esophagus. - Normal stomach. - Duodenal erosions without bleeding. Biopsied. - Duodenal diverticulum. Recommendation: - Await pathology results. - Discharge patient to home (with escort). - Perform an upper endoscopic ultrasound (UEUS) today. Mejia Zeng MD 10/19/2017 9:14:24 AM This report has been signed electronically. Note Initiated On: 10/19/2017 8:40 AM I attest to the content of the Intraoperative Record and orders documented therein, exceptions below
--- NOTE | 2017-10-19 11:27 | GI REPORT ---
Procedure Date: 10/19/2017 9:14 AM Procedure: Upper EUS Indications: Abnormal blood work, Known MEN-1 syndrome Medicines: Monitored Anesthesia Care Complications: No immediate complications. Estimated blood loss: None. Estimated Blood Loss: Estimated blood loss: none. Procedure: Pre-Anesthesia Assessment: - Pre-Anesthesia Assessment: - Prior to the procedure, a History and Physical was performed, and patient medications, allergies and sensitivities were reviewed. The patient's tolerance of previous anesthesia was reviewed. Please see [employer] for complete details. - The risks and benefits of the procedure and the sedation options and risks were discussed with the patient. All questions were answered and informed consent was obtained. - Patient identification and proposed procedure were verified prior to the procedure by the physician and the nurse. The procedure was verified in the pre-procedure area in the procedure room. After obtaining informed consent, the endoscope was passed carefully and meticuously under direct vision and only advanced when the lumen was clearly identified, C02 insuflation was utilized throughout the entirity of the procedure. Throughout the procedure, the patient's blood pressure, pulse, and oxygen saturations were monitored continuously. After obtaining informed consent, the endoscope was passed under direct vision. Throughout the procedure, the patient's blood pressure, pulse, and oxygen saturations were monitored continuously.The upper EUS was accomplished without difficulty. The patient tolerated the procedure well. The Endosonoscope was introduced through the mouth, and advanced to the second part of duodenum. Findings: Endosonographic Finding : Anechoic lesions suggestive of a few cysts were identified in the pancreatic head, body, and tail. The first cyst measured 3 mm by 2 mm (head). The second cyst measured 7 mm (body) in maximal cross-sectional diameter. The third cyst measured 9 mm by 6 mm (tail near left kidney). There was no associated mass. Diagnostic needle aspiration for fluid was performed. Color Doppler imaging was utilized prior to needle puncture to confirm a lack of significant vascular structures within the needle path. One pass was made with the 22 gauge needle using a transgastric approach of the pancreatic tail lesion. A stylet was used. The amount of fluid collected was 2 mL. The fluid was clear. Sample(s) were sent for cytology and CEA. An oval lesin was identified in the pancreatic head. The mass was hypoechoic. The mass measured 6 mm by 4 mm in maximal cross-sectional diameter. The endosonographic borders were well-defined. An intact interface was seen between the mass and the adjacent structures suggesting a lack of invasion. The remainder of the pancreas was examined. The endosonographic appearance of parenchyma and the upstream pancreatic duct indicated a normal appearing duct. There was no sign of significant endosonographic abnormality in the left lobe of the liver. There was no sign of significant endosonographic abnormality involving the celiac trunk. No lymphadenopathy seen. -Comments: Ms. Smiley is a complicated patient with document MEN-1, increasing Chromogranin A level, small cytic lesions, no alarm features, this hypoechoic area in the head was very ill defined and quite small, but FNA performed due to clinical scenerio. If non-revealing suggest at miniumum close follow up repeat EUS vs MRI, consider evaluation at [facility]. Also Suggest Chest imaging. Following Chromogranin A level. Impression: - A few cystic lesions were seen in the pancreatic head,body, tail. Fine needle aspiration for fluid performed. - A mass was identified in the pancreatic head. This was staged T1 N0 Mx by endosonographic criteria. The staging applies if malignancy is confirmed. - There was no evidence of significant pathology in the left lobe of the liver. - The celiac trunk was endosonographically normal. Recommendation: - Discharge patient to home (with escort). - Await cytology results and await tumor markers. Mejia Zeng MD 10/19/2017 11:27:05 AM This report has been signed electronically. Note Initiated On: 10/19/2017 9:14 AM I attest to the content of the Intraoperative Record and orders documented therein, exceptions below
[2017-10-19 11:30] VITALS: BP 106/73; PULSE 49; TEMP 36.6; O2SAT 97
[2017-10-19 11:58] VITALS: BP 115/77; PULSE 53; TEMP 36.6; O2SAT 97
[2017-10-19 12:30] VITALS: BP 106/58; PULSE 56; TEMP 36.6; O2SAT 98
== END 2017-10-19 12:36 | disposition home or self-care (01) ==
LOC: C.ACU 07:25
PROVIDERS: ATTEND Internal Medicine
DX: E31.21 Multiple endocrine neoplasia [MEN] type I (principal); K30 Functional dyspepsia; K57.10 Diverticulosis of small intestine without perforation or abscess without bleeding; K21.9 Gastro-esophageal reflux disease without esophagitis; Z86.72 Personal history of thrombophlebitis

== ENCOUNTER → 2018-03-29 | Outpatient (CLI) | payer BC, OTHER ==
[~2018-03-29] MED LIST changes: -ATROPINE SULFATE 0.1 MG/ML 5ML SYR IV PRN; -EpHEDrine SULFATE INJ 50 MG/ML AMP IV PRN; -FENTANYL CITRATE INJ 50 MCG/1 ML 2 ML VIAL IV PRN; +GLIP2.5T11 PO; -METF500T5 PO; -ONDANSETRON INJ 2 MG/ML 2 ML VIAL IV PRN
--- NOTE | 2018-03-29 15:40 | MAMMOGRAPHY REPORT ---
BILATERAL DIGITAL SCREENING MAMMOGRAM TOMOSYNTHESIS WITH CAD: 03/29/2018 CLINICAL HISTORY: Routine screening. TECHNIQUE: The study was acquired using full field digital technology and interpreted from soft copy. Breast tomosynthesis in addition to standard 2D mammography was performed. Current study was also ev aluated with a Computer Aided Detection (CAD) system. COMPARISON: Comparison is made to exams dated: 03/23/2017 mammogram, 03/02/2016 mammogram, 01/06/2015 ma mmogram, 01/05/2014 mammogram, 12/17/2012 mammogram, and 12/15/2011 mammogram - [facility]. BREAST COMPOSITION: There are scattered areas of fibroglandular density in both breasts. FINDINGS: No suspicious masses, calcifications, or areas of architectural distortion are noted in either breast . There has been no significant interval change compared to prior exams. A linear scar marker overli es the left superior breast. Bilateral breast asymmetries and scattered benign-appearing left breast calcifications are not significantly changed. IMPRESSION: ACR BI-RADS CATEGORY 2: BENIGN There is no mammographic evidence of malignancy. A 1 year screening mammogram is recommended.( 019) The patient will receive written notification of the results. Some breast cancers are not detected with mammography. A negative mammographic report should not trish y biopsy if a clinically suggestive mass is present. Keturah Maya M.D. ah/:03/29/2018 09:17:20 [employer]: RT Krishna(R)(M), [facility] letter sent: Normal 1/2 BI-RADS Code: ACR BI-RADS Category 2: Benign
== END | disposition home or self-care (01) ==
LOC: C.MAMM 08:52
PROVIDERS: ATTEND Obstetrics & Gynecology
DX: Z12.31 Encounter for screening mammogram for malignant neoplasm of breast (principal)

== ENCOUNTER → 2018-04-01 | Outpatient (CLI) | payer BC, OTHER ==
[2018-04-01 12:45] LABS: BASO % 0.2 %; BASO ABS # 0.02 K/uL (0-0.2); EOS % 0.6 %; EOS ABS # 0.05 K/uL (0-0.5); HEMATOCRIT 38.7 % (37-47); HEMOGLOBIN 12.5 g/dL (12.0-16.0); IG# 0.02 K/uL (0.00-0.02); LYMPH % 19.9 %; LYMPH ABS # 1.67 K/uL (1.2-3.4); MEAN CELL VOLUME 91.3 fL (80-100); MEAN CORPUSCULAR HEMOGLOBIN 29.5 pg (25-34); MEAN CORPUSCULAR HGB CONC 32.3 g/dl (32-36); MEAN PLATELET VOLUME 9.9 fL (7.4-10.4); MONO % 4.5 %; MONO ABS # 0.38 K/uL (0.11-0.59); NEUT % 74.6 %; NEUT ABS # 6.24 K/uL (1.4-6.5); PLATELET COUNT 339 K/uL (130-400); RED CELL DISTRIBUTION WIDTH CV 13.8 % (11.5-14.5); RED CELL DISTRIBUTION WIDTH SD 45.9 fL (36.4-46.3); WHITE BLOOD COUNT 8.38 K/uL (4.8-10.8)
[2018-04-01 13:02] LABS: BLOOD UREA NITROGEN 16 mg/dl (7-18); CALCIUM 9.8 mg/dl (8.5-10.1); CARBON DIOXIDE 30 mmol/L (21-32); CREATININE 0.73 mg/dl (0.60-1.20); GLUCOSE 95 mg/dl (70-99); POTASSIUM 3.5 mmol/L (3.5-5.1); SODIUM 137 mmol/L (136-145)
== END | disposition home or self-care (01) ==
LOC: C.LAB 10:35
PROVIDERS: ATTEND Obstetrics & Gynecology
DX: Z01.810 Encounter for preprocedural cardiovascular examination (principal); Z01.812 Encounter for preprocedural laboratory examination

== ENCOUNTER → 2018-04-16 | Outpatient (CLI) | payer BC, OTHER ==
[~2018-04-16] MED LIST changes: +ACET-1256 PO; +HYDR-3419 PO; +MTR600X PO; +OXYC-57 PO
--- NOTE | 2018-04-16 16:39 | DIAGNOSTIC IMAGING REPORT ---
ADDENDUM HISTORY:: Lung carcinoma should not be in the history Electronically signed by: Pasquale Lainez M.D. 04/18/2018 3:48 PM Dictated Date/Time: 04/18/2018 3:47 PM ORIGINAL REPORT (CHEST) THORAX WITHOUT CT DOSE: 277.34 mGy.cm HISTORY: Lung carcinoma R91.8 Type I Multiple Endocrine Neoplasiain 2 months TECHNIQUE: Multiaxial CT images of the chest were performed without contrast. A dose lowering technique was utilized adhering to the principles of ALARA. COMPARISON: 04/22/2013 FINDINGS: The lungs are clear. The mediastinal vascular structures are within normal limits. No mediastinal or hilar lymphadenopathy. No pleural effusion or pneumothorax. Limited views of the upper abdomen demonstrate a normal liver and spleen. Minimal right paravertebral chronic fibrotic change which has been described previously. No new or interval findings. IMPRESSION: . No change from the prior study. No acute process. The above report was generated using voice recognition software. It may contain grammatical, syntax or spelling errors. Electronically signed by: Pasquale Lainez M.D. 04/16/2018 4:38 PM Dictated Date/Time: 04/16/2018 4:36 PM
== END | disposition home or self-care (01) ==
LOC: C.CTS 16:12
PROVIDERS: ATTEND Surgery
DX: R91.8 Other nonspecific abnormal finding of lung field (principal)

== ENCOUNTER 2018-04-22 06:11 | Observation (INO) | payer BC, OTHER ==
[2018-03-26 16:10] VITALS: BMI 34.0
[2018-04-01 10:42] VITALS: BMI 34.0
--- NOTE | 2018-04-01 11:11 | PAT Medication Instructions ---
Service Date Apr 01, 2018. Current Home Medication List Ascorbic Acid (Vitamin C), 1 TAB PO QPM Cholecalciferol (D 1999), 1 TAB PO QPM Multivitamin (Multivitamin), 1 TAB PO QPM Omeprazole (Prilosec), 40 MG PO QAM Triamterene/Hctz (Triamterene/Hctz 37.5-25MG), 1 TAB PO QPM Medication Instructions For Your Scheduled Surgery - Take the following medications the morning of surgery with a sip of water: Omeprazole (Prilosec), 40 MG PO QAM - Take the following medications as scheduled the night before surgery: Ascorbic Acid (Vitamin C), 1 TAB PO QPM Cholecalciferol (D 1999), 1 TAB PO QPM Glipizide, 2.5MG 1 TAB PO QPM Multivitamin (Multivitamin), 1 TAB PO QPM Triamterene/Hctz (Triamterene/Hctz 37.5-25MG), 1 TAB PO QPM If you have any questions please call us at [phone] or [phone] or [phone]
[~2018-04-22] VITALS: Ht 167.6 cm; Wt 95.2 kg
[2018-04-22] VITALS (8 sets, daily range): BP systolic 105–128; BP diastolic 66–77; PULSE 53–66; TEMP 36.3–36.7; O2SAT 96–99; Ht 167.6 cm; Wt 95.2 kg
[~2018-04-22 06:11] MED LIST changes: -ACET-1256 PO; +CEFAZOLIN 2000MG IV PUSH 15 ML IV SCH; -HYDR-3419 PO; +LACTATED RINGER'S 1000ML 1,000 ML IV SCH; -MTR600X PO; -OXYC-57 PO
[2018-04-22] MEDS ORDERED: ACET-1256 PO (06:37)
[2018-04-22] MEDS ORDERED: DEXAMETHASONE SOD INJ 4 MG/ML VIAL ONE (06:48)
[2018-04-22] MEDS ORDERED: ROCURONIUM BROMIDE 10 MG/ML 5 ML VIAL ONE (06:48)
[2018-04-22] MEDS ORDERED: PROPOFOL IV EMULSION 10 MG/ML 20 ML VIAL ONE (06:48)
[2018-04-22] MEDS ORDERED: ONDANSETRON INJ 2 MG/ML 2 ML VIAL ONE (06:48)
[2018-04-22] MEDS ORDERED: NEOSTIGMINE METHYLSULFATE 5 MG/5 ML SYR ONE (06:48)
[2018-04-22] MEDS ORDERED: FENTANYL CITRATE INJ 50 MCG/1 ML 2 ML VIAL ONE ×5 (06:48→10:15)
[2018-04-22] MEDS ORDERED: GLYCOPYRROLATE INJ 0.2 MG/ML VIAL ONE (06:48)
[2018-04-22] MEDS ORDERED: LIDOCAINE HCL 2% 2 ML VIAL (20MG/ML) ONE (06:48)
[2018-04-22] MEDS ORDERED: MIDAZOLAM HCL 1 MG/ML 2ML VIAL ONE (06:49)
[2018-04-22] MEDS ORDERED: BUPIVACAINE 0.5 % 5 MG/1 ML PF 10ML VIAL ONE (07:09)
[2018-04-22] MEDS ORDERED: METHYLENE BLUE 0.5% 10 ML VIAL ONE (07:54)
[2018-04-22] MEDS ORDERED: BUPIVACAINE 0.5 % 5 MG/1 ML MPF 30ML VIAL INJ ONE (08:00)
[2018-04-22] MEDS ORDERED: ATROPINE SULFATE 0.1 MG/ML 5ML SYR IV PRN ×2 (09:00)
[2018-04-22] MEDS ORDERED: PROMETHAZINE HCL INJ 6.25 MG in SODIUM CHLORIDE 0.9% 50ML 50 ML IV PRN ×4 (09:00)
[2018-04-22] MEDS ORDERED: HYDROmorphone INJ 1 MG/ML SYR IV PRN (09:00)
[2018-04-22] MEDS ORDERED: EpHEDrine SULFATE INJ 50 MG/ML AMP IV PRN ×2 (09:00)
[2018-04-22] MEDS ORDERED: FENTANYL CITRATE INJ 50 MCG/1 ML 2 ML VIAL IV PRN ×2 (09:00)
[2018-04-22] MEDS ORDERED: ONDANSETRON INJ 2 MG/ML 2 ML VIAL IV PRN ×3 (09:00→09:45)
[2018-04-22] MEDS ORDERED: LACTATED RINGER'S 1000ML 1,000 ML IV SCH (09:39)
--- NOTE | 2018-04-22 09:39 | [facility] Post Operative Brief Note ---
Immediate Operative Summary Operative Date Apr 22, 2018. Pre-Operative Diagnosis 1. Ovarian Cyst, complex. 2. Pelvic Pain Post-Operative Diagnosis same, endometriosis Procedure(s) Performed Robotic Assisted Total Laparoscopic Hysterectomy, Right Salpingectomy, Left Salpingo-Oopherectomy, and Cystoscopy, lysis of adhesions Surgeon Dr. Dorothy Sanchez Sales Agent Financial Report Service Surgeon(s) Dr. Kingston Odell Estimated Blood Loss 15mL Findings See Below (normal right fallopian tube. left fallopian tube tortuous. left ovary adhesed to side wall and bowel. evidence of endometrioma vs. hemorrhagic cyst on left. implants of endometriosis overlying colon. normal liver edge. cysto findings with nl bladder filling and normal ureteral jets. ) uterus enlarged with fibroid. right ovary normal Fluids (cc crystalloids) 1400 Specimens Permanent: A. Uterus, cervix, bilateral fallopian tubes, and left ovary Drains mendez Anesthesia Type General Complication(s) none Disposition Accompanied Pt To Recover: no Disposition: Recovery Room / PACU
[2018-04-22] MEDS ORDERED: ACETAMINOPHEN 325 MG TAB PO PRN (09:45)
[2018-04-22] MEDS ORDERED: OXYCODONE/ACETAMINOPHEN 5-325 TAB PO PRN ×2 (09:45)
[2018-04-22] MEDS ORDERED: KETOROLAC TROMETHAMINE 30 MG/ML VIAL IV. PRN (09:45)
[2018-04-22] MEDS ORDERED: SIMETHICONE 80 MG CHEW PO PRN (09:45)
[2018-04-22] MEDS ORDERED: IBUPROFEN 600 MG TAB PO PRN (09:45)
[2018-04-22] MEDS ORDERED: OXYC-57 PO (09:47)
[2018-04-22] MEDS ORDERED: MTR600X PO (09:47)
--- NOTE | 2018-04-22 09:49 | Discharge Instructions ---
Discharge Instructions Date of Service Apr 22, 2018. Admission Reason for Admission: Pelvic Pain, Complex Left Ovarian Cyst Discharge Discharge Diagnosis / Problem: after surgery Discharge Goals Goal(s): Routine recovery after surgery Activity Recommendations Activity Limitations: as noted below . Instructions / Follow-Up Instructions / Follow-Up POST OPERATIVE: BOWEL FUNCTION/MEDICATIONS: 1. Constipation pain and discomfort are the most common complaints 5-7 days after surgery. Points 2-6 address the things that can help. 2. Chewing gum can help stimulate the gut and help improve digestion and motility. 3. Milk of Magnesia 1-2 times per day until return of bowel function. 4. Colace is a stool softener that helps. Taking this 2-3 times per day until bowel function returns to normal is highly recommended. 5. Dulcolax is a laxative that may be used if several days have passed without a bowel movement. Alternatively Miralax may be used daily instead. 6. Drink plenty of fluids as this will also reduce constipation. 7. Narcotic pain medications will be prescribed by your physician. They are safe to use and we encourage you to use them. If you are not allergic, ibuprofen will also be prescribed. Many patients will be able to transition off of the narcotic medications to ibuprofen by postoperative day 3. ACTIVITY RECOMMENDATIONS: 1. Get plenty of rest and listen to your body. If you are tired, take a nap. 2. You may shower, but do not take a tub bath until you see your doctor at the 2 week post operative visit. 3. Absolutely NO intercourse and nothing in the vagina until you are examined by your doctor at the 8 week visit. At that visit it will be determined when such activities can be resumed. This can range from 6-12 weeks after your surgery depending on healing time. 4. The main physical activity in the first week should be walking. By the second week you can slowly increase activity. There are no limits on walking up and down stairs. 5. Do not lift more than 5-10 lbs for 4 weeks. Remember the "one-handed rule", i.e. if you can lift something with only one hand it's likely okay. 6. Minimize car builder like vacuuming and exercising for 4 weeks. "Overdoing it" can lead to incisions not healing, pain and vaginal bleeding , so again, listen to your body. 7. Driving can be resumed when you feel able. Do not drive within 24 hours of taking a narcotic medication. EXPECTATIONS: 1. Vaginal spotting, bleeding and discharge are common after surgery. There may even be an odor to the discharge which is often related to sutures used in the vagina. If you experience heavy vaginal bleeding, call the office number day or night [phone]. 2. Bladder discomfort is common after surgery from the catheter. This usually resolves in 1-2 weeks. 3. By the end of the 3rd or 4th week you should be feeling much better. It may take up to 6 weeks for your energy levels to return to normal. 4. Narcotic medications have side effects such as: dizziness, headache, nausea and/or vomiting. If you suspect your pain medication is causing problems, call our office and we may be able to prescribe an alternate medication. 5. The skin incisions are often covered with a liquid bandage. This will gradually peel off over time. CALL THE OFFICE IF YOU HAVE ANY OF THE FOLLOWIN. Temperature of 101 degrees or higher. 2. Severe abdominal or pelvic pain not relieved by pain medication. 3. Persistent nausea or vomiting. 4. Increased pain with urination or difficulty urinating. 5. Bright red bleeding that soaks more than 1 pad per hour. CONTACT PHONE NUMBERS: Main Office: [phone] Surgical Nurse: [phone] extension [phone] FOLLOW-UP: Post-Operative Appointments: * Individual instructions will have been given about the timing of your first examination, but this is usually at the end of the second week home. * You will need to call the office at soon after discharge to make the appointment for your post-op check-up if it has not already been scheduled. * Additional information regarding activity, sexual intercourse and when to return to work will be given at this appointment. WE WISH YOU A SPEEDY RECOVERY! Current Hospital Diet Patient's current hospital diet: Discharge Diet Recommended Diet: Regular Diet Procedures Procedures Performed: Robotic Assisted Total Laparoscopic Hysterectomy, Right Salpingectomy, Left Salpingo-Oopherectomy, and Cystoscopy, lysis of adhesions Pending Studies Studies pending at discharge: yes List of pending studies: pathology Laboratory Results Hemoglobin A1c Test 02/07/18 11:28 Range/Units Estimated Average Glucose 143 mg/dl Hemoglobin A1c 6.6 H 4.5-5.6 % Medical Emergencies . Who to Call and When: Medical Emergencies: If at any time you feel your situation is an emergency, please call 911 immediately. . Non-Emergent Contact Non-Emergency issues call your: Magazine Writer . . "Provider Documentation" section prepared by Dorothy Sanchez. . [place] Drug Monitoring Program Search Results: patient reviewed within database, no issues identified
[2018-04-22] MEDS: HYDROmorphone INJ 1 MG/ML SYR IV PRN ×2 (10:32→10:39)
--- NOTE | 2018-04-22 11:09 | Anesthesiology Progress Note ---
Anesthesia Post Op Note Date & Time Apr 22, 2018 at 11:09 Vital Signs Pain Intensity: 4 Vital Signs Past 12 Hours Date Time Temp Pulse Resp B/P (MAP) Pulse Ox O2 Delivery O2 Flow Rate FiO2 04/22/18 10:55 48 12 123/74 99 Nasal Cannula 2 04/22/18 10:50 36.0 44 14 117/74 97 Nasal Cannula 2 04/22/18 10:40 53 13 139/64 98 Nasal Cannula 2 04/22/18 10:30 48 13 127/77 97 Nasal Cannula 2 04/22/18 10:20 49 14 135/81 98 Nasal Cannula 2 04/22/18 10:10 49 14 136/73 99 Oxymask 10 04/22/18 10:00 51 14 128/74 100 Oxymask 10 04/22/18 09:50 57 10 125/77 98 Oxymask 10 04/22/18 09:43 36.4 66 17 135/80 95 Oxymask 10 04/22/18 06:40 36.6 66 20 128/68 (88) 97 Room Air Notes Mental Status: alert / awake / arousable, participated in evaluation Pt Amnestic to Procedure: Yes Nausea / Vomiting: adequately controlled Pain: adequately controlled Airway Patency, RR, SpO2: stable & adequate BP & HR: stable & adequate Hydration State: stable & adequate Anesthetic Complications: no major complications apparent
[2018-04-22] MEDS ORDERED: IV FLUIDS COMPLETED PRN (11:15)
--- NOTE | 2018-04-22 11:39 | OPERATIVE REPORT ---
DATE OF OPERATION: 04/22/2018 PREOPERATIVE DIAGNOSES: 1. Complex left ovarian cyst. 2. Pelvic pain. POSTOPERATIVE DIAGNOSES: 1. Complex left ovarian cyst. 2. Pelvic pain. 3. Pelvic adhesions. 4. Evidence of endometriosis. PROCEDURES: 1. Total laparoscopic hysterectomy. 2. Bilateral salpingectomies. 3. Left oophorectomy. 4. Lysis of adhesions. 5. Robotic assistance. 6. Cystoscopy. SURGEON: Dorothy Sanchez MD. MEAT SMOKER: Kingston Odell MD. ANESTHESIA: General. IV FLUIDS: 1400 mL. ESTIMATED BLOOD LOSS: 15 mL. URINE OUTPUT: Approximately 300 mL. FINDINGS: Uterus globally enlarged with a fibroid posteriorly, approximately 10 weeks size. Normal right ovary and fallopian tube. Left ovary adhesed to the left pelvic sidewall with evidence of hemorrhagic cyst versus endometrioma. Adhesions of the bowel to the left ovary. Left fallopian tube tortuous and seemingly blood filled. Implants of endometriosis noted overlying the colon. Normal liver edge. Cystoscopy findings with normal bladder filling and normal ureteral jets. INDICATIONS: A 48-year-old with a history of complex left ovarian cyst and persistent left-sided pelvic pain as well as cyclic pelvic pain that would be excruciating. She had a history of an ablation for heavy periods, which had worked although she was starting to have some small amount of bleeding return. She had the episodes of severe pelvic pain cyclically but was also having now more constant left-sided pain and had ultrasound findings consistent with a complex ovarian cystic structure. She desired definitive surgical therapy with hysterectomy and evaluation of the left adnexa for possible removal. She underwent preoperative clearance with her family doctor. She did have a history of DVT, and the plan was for routine pneumatic compression stockings and early ambulation. DESCRIPTION OF PROCEDURE: Patient was taken to the operating room and identified. After adequate general anesthesia was obtained, she was placed in dorsal lithotomy position and prepped and draped in the usual sterile fashion. A weighted speculum and an anterior retractor were used to visualize the cervix, which was grasped in its anterior lip with an Allis clamp. A Meneses catheter had already been placed under sterile conditions. The cervix was sequentially dilated using Hegar dilators, but this was difficult. This was likely due to her prior ablation. A single interrupted suture of 0 Vicryl was placed at 3 o'clock position, and attention was returned to the abdomen. An infraumbilical skin incision was made with a scalpel. The Veress needle was placed intraperitoneally with an opening pressure of 4-6 mmHg. A CO2 pneumoperitoneum was created. A 12 mm optical trocar was placed under direct visualization to the patient's abdomen. The patient was then placed in steep Trendelenburg. Da Paco trocar sites were created, 2 on the right and 1 on the left by creating skin incisions and then placing under direct visualization da Paco trocars. Using a blunt probe, the pelvis was inspected with the findings as noted above. Attention was then returned vaginally where under direct visualization the cervix was dilated, and the uterine manipulator was placed. The balloon was inflated. The suture material was used to tie down the initial cup and then stabilizing cup was placed. All the vaginal instruments were then removed. The surgeon then returned to the abdomen where the da Pcao robot was brought to the patient's bedside. The appropriate instrument arms were connected to the appropriate trocars. The camera was introduced. The fenestrated bipolar was brought through instrument arm #2, and the monopolar lucero brought through instrument arm #1. The ProGrasp was then brought through instrument arm #3. The surgeon then went to the console. Using manipulation from below, the right adnexa was then inspected. The ureter was thought to be coursing well below the planned operative field. The right salpingectomy then took place with monopolar lucero and bipolar cautery. The uteroovarian, round ligament complex was then also sequentially coagulated and cut. The anterior and posterior leaves of the broad ligament were then opened up into, and the bladder flap was begun from the right side toward the midline. The uterine artery pedicle was skeletonized and then was coagulated. Attention then was turned to the left adnexal structure. Due to the evidence of adhesions of the bowel to the left adnexa, decision was made to proceed with the hysterectomy portion and then go back to remove the left adnexa. The adhesions were bluntly and sharply taken down to free the bowel from the left ovary completely. The uteroovarian ligament was sequentially coagulated along with the round ligament on the left side. It was then transected. The anterior and posterior leaves of the broad ligament on the left side were then dissected to create the bladder flap from the left to meet in the midline at the right. The bladder was pushed well away from the planned operative site. The uterine artery pedicle was then skeletonized on the left side. The uterine artery pedicle was then coagulated and transected. The attention was returned to the right uterine artery pedicle, which was then recoagulated and transected. The cardinal ligament attachments on each side were then coagulated and transected. The site for the colpotomy was cleared away. The colpotomy was then begun posteriorly and was carried circumferentially carving the cervix off from the upper vagina. The specimen was then brought out through the vagina. A sponge was placed to allow for maintenance of the pneumoperitoneum. At this point, attention was returned to the left adnexa. It was elevated using the ProGrasp. Blunt and sharp dissection teased the ovary away from the side wall. It was significant to mention that implants of endometriosis had been noted overlying the bowel on the left side. Due to their location they were not coagulated. The infundibulopelvic ligament on the left side was elevated, and the ureter was thought to be coursing well below the planned operative site. This pedicle was then coagulated and transected as well as the remaining tissue attachments of the left adnexa, particularly to the left side wall. The specimen was completely removed and was brought out through the vagina to be sent as specimen. The 2-0 V-Loc 90 suture was then brought through the vaginal opening and introduced in the abdomen. The #1 trocar instrument was then replaced with a large needle medical driver. The vaginal cuff was then closed in the usual fashion using the 2-0 V-Loc 90 suture, and back stitches were placed. The suture material was cut. The ProGrasp instrument was removed from the instrument arm #3, and the needle medical driver was used to remove the needle from this area. The pelvis was irrigated. There were no active bleeding sites noted. The pneumoperitoneum was let down, and there were no active bleeding sites noted. The patient had already been given IV methylene blue. The cystoscopy took place with the findings as noted above. At this point, all the instrument arms were disconnected from the trocars. The robot was moved away from the patient's bedside. The CO2 gas allowed to escape from the patient's abdomen. The trocars were then removed. The infraumbilical fascial incision was then reapproximated with an interrupted suture of 0 Vicryl followed by all skin incisions being closed in a subcuticular fashion using 4-0 Vicryl. They were injected with Marcaine. No other dressings were applied due to the patient's ADHESIVE ALLERGY. The patient was returned to the supine position. It is important to mention that a new Meneses catheter had been placed. She was awoken from anesthesia and transferred to the recovery room in stable condition. All sponge, lap, and needle counts were correct x2. I attest to the content of the Intraoperative Record and any orders documented therein. Any exceptions are noted below. HAWKD
[2018-04-22] MEDS ORDERED: HYDROCODONE/ACETAMIN 5/325MG TAB PO PRN (13:00)
[2018-04-22] MEDS ORDERED: HYDR-3419 PO (13:01)
--- NOTE | 2018-04-23 12:00 | DISCHARGE SUMMARY ---
ADMISSION DIAGNOSES: 1. Complex ovarian cyst. 2. Pelvic pain. DISCHARGE DIAGNOSES: 1. Complex ovarian cyst 2. Pelvic pain. 3. Endometriosis. PROCEDURE: 1. Total laparoscopic hysterectomy. 2. Right salpingectomy. 3. Left salpingo-oophorectomy. 4. Cystoscopy. 5. Lysis of adhesions. 6. Robotic assistance. BRIEF HISTORY AND HOSPITAL COURSE: A 48-year-old 3, para 3 with a history of cyclic severe pelvic pain and a background history of prior ablation as well as persistent left-sided pain with finding on ultrasound of complex ovarian cyst. She had a prior ablation that was helping her with her flow; however, she was having severe cyclic pain along with the left-sided findings and desired surgical therapy. She desired removal of the uterus and cervix and evaluation of the left adnexa for possible removal. She underwent the above-stated procedures without incident. Please see the operative note as well as the operative findings for further detail. Her postoperative course was uncomplicated. She was tolerating a regular diet, voiding spontaneously without difficulty, ambulating without difficulty and was stable for her discharge on her postop day #0. She was given appropriate discharge instructions as well as prescriptions for pain and was told to follow up in 2 weeks' time for her postoperative checkup. YANIRA
== END 2018-04-22 18:50 | disposition home or self-care (01) ==
LOC: C.ACU 06:11 → C.MS4N 06:20 → ENRESERV 09:59
PROVIDERS: ADMIT Obstetrics & Gynecology; ATTEND Obstetrics & Gynecology
DX: N83.201 Unspecified ovarian cyst, right side (principal); R10.2 Pelvic and perineal pain; N80.0 Endometriosis of uterus; N84.1 Polyp of cervix uteri; D25.9 Leiomyoma of uterus, unspecified; N73.6 Female pelvic peritoneal adhesions (postinfective); N70.91 Salpingitis, unspecified; I10 Essential (primary) hypertension; E11.9 Type 2 diabetes mellitus without complications; E66.9 Obesity, unspecified; Z68.34 Body mass index [BMI] 34.0-34.9, adult; Z79.899 Other long term (current) drug therapy; Z86.718 Personal history of other venous thrombosis and embolism
CPT/HCPCS: 58571; S2900